=== PATIENT | female | born 1980 | race Caucasian/White ===

== ENCOUNTER 2018-02-16 10:16 | Outpatient (REF) | payer OTHER, SELFPAY ==
[2018-02-16 13:11] LABS: Anion Gap 8.5 mmol/L (3-11); BUN 10 mg/dL (7-18); CO2 27.5 mmol/L (21.0-32.0); CREATININE 0.73 mg/dL (0.55-1.02); Calcium 9.3 mg/dL (8.5-10.1); Chloride 106 mmol/L (98-107); Glucose 90 mg/dL (70-100); Sodium 142 mmol/L (136-145)
== END 2018-02-16 10:36 ==
LOC: NCHCN 10:16
PROVIDERS: PCP Family Medicine; Visit Provider Family Medicine
DX: I10 Essential (primary) hypertension (principal)
CPT/HCPCS: 80048

== ENCOUNTER 2019-03-01 16:59 | Outpatient (REF) | payer OTHER, SELFPAY ==
[2019-03-01 20:02] LABS: Hemoglobin A1C 5.6 % (3.8-5.6)
[2019-03-01 20:12] LABS: CREATININE 0.68 mg/dL (0.55-1.02); Calculated LDL 84 mg/dL; Cholesterol 154 mg/dL (<200); HDL Cholesterol 50 mg/dL (40-60); Triglyceride 103 mg/dL (<150)
== END 2019-03-01 17:19 ==
LOC: NCHCN 16:59
PROVIDERS: PCP Family Medicine; Visit Provider Family Medicine
DX: Z13.1 Encounter for screening for diabetes mellitus (principal); I10 Essential (primary) hypertension; Z00.00 Encounter for general adult medical examination without abnormal findings; Z13.220 Encounter for screening for lipoid disorders
CPT/HCPCS: 80061; 82565; 83036

== ENCOUNTER 2020-03-02 17:09 | Outpatient (REF) | payer OTHER, SELFPAY ==
--- NOTE | 2020-03-02 16:45 | PAPFT_PTH ---
PATIENT: Marilyn Miller LOC: [facility] #:[id number] AGE/SX: 40/F ROOM: RE03/02/[address]: Que Palafox : 1980 BED: DIS: 03/02/2020 SPEC #: [id number] RECD: 03/02/20 17:51 STATUS: NILAY REQ #: [id number] SARANYA: 03/02/20 16:[address]: Que Palafox DEPT: [facility] Cytology RECD BY: Reshma Gregorio Tissues: 1 - CX/ENDOCX FOR PAP SMEARS Procedures: PAP THIN PREP/UVM Screening HPV DNA PROBE Comments: [id number]
== END 2020-03-02 17:29 ==
LOC: NCHCN 17:09
PROVIDERS: PCP Family Medicine; Visit Provider Family Medicine
DX: R87.610 Atypical squamous cells of undetermined significance on cytologic smear of cervix (ASC-US) (principal); Z11.51 Encounter for screening for human papillomavirus (HPV); Z00.00 Encounter for general adult medical examination without abnormal findings
CPT/HCPCS: 88142; 87624

== ENCOUNTER 2021-04-26 18:24 | Outpatient (REF) | payer OTHER, SELFPAY ==
[2021-04-26 19:54] LABS: CREATININE 0.9 mg/dL (0.55-1.02)
[2021-04-28 08:58] LABS: Hepatitis C Ab w Rflx HCV PCR Negative (Negative)
== END 2021-04-26 18:25 | disposition home or self-care (01) ==
LOC: NCHCN 18:24
PROVIDERS: PCP Family Medicine; Visit Provider Family Medicine
DX: Z00.00 Encounter for general adult medical examination without abnormal findings (principal); I10 Essential (primary) hypertension; Z11.59 Encounter for screening for other viral diseases
CPT/HCPCS: 86803; 82565

== ENCOUNTER 2022-03-28 18:02 | Outpatient (REF) | payer OTHER, SELFPAY ==
[2022-03-28 18:27] LABS: CREATININE 0.7 mg/dL (0.55-1.02); Estimated GFR 112.05 (mL/min/1.73m2)
[2022-03-28 18:32] LABS: Hemoglobin A1C 5.3 % (<5.7)
== END 2022-03-28 18:03 | disposition home or self-care (01) ==
LOC: NCHCN 18:02
PROVIDERS: PCP Family Medicine; Visit Provider Family Medicine
DX: Z00.00 Encounter for general adult medical examination without abnormal findings (principal); Z13.1 Encounter for screening for diabetes mellitus; I10 Essential (primary) hypertension
CPT/HCPCS: 82565; 83036

== ENCOUNTER 2023-04-04 18:33 | Outpatient (REF) | payer BC, SELFPAY ==
--- NOTE | 2023-04-04 16:00 | PAPFT_PTH ---
PATIENT: Marilyn Miller LOC: [facility]#:[id number] AGE/SX: 43/F ROOM: RE04/04/[address]: Que Palafox : 1980 BED: DIS: 04/04/2023 SPEC #: [id number] RECD: 04/04/23 18:40 STATUS: NILAY REQ #: [id number] SARANYA: 04/04/23 16:[address]: Que Palafox DEPT: [facility] Cytology RECD BY: Reshma Gregorio Tissues: 1 - CX/ENDOCX FOR PAP SMEARS Procedures: PAP THIN PREP/UVM Screening HPV DNA PROBE Comments: [id number]
== END 2023-04-04 18:34 | disposition home or self-care (01) ==
LOC: NCHCN 18:33
PROVIDERS: PCP Family Medicine; Visit Provider Family Medicine
DX: Z12.4 Encounter for screening for malignant neoplasm of cervix (principal); Z11.51 Encounter for screening for human papillomavirus (HPV); R87.613 High grade squamous intraepithelial lesion on cytologic smear of cervix (HGSIL)
CPT/HCPCS: 88142; 87624

== ENCOUNTER → 2023-04-25 03:50 | Outpatient (CLI) | payer BC, SELFPAY ==
--- NOTE | 2023-04-25 | DI.MAMMO_ITS ---
Exam(s) MAMMO SCREENING EXAM: MAMMO SCREENING CLINICAL HISTORY: SCREENING, Z12.31. TECHNIQUE: Bilateral full field digital CC and MLO mammographic images were obtained with 3D tomosyn thesis and utilizing computer aided detection (CAD). COMPARISON: None. This is a baseline mammogram on a 43-year-old. FINDINGS: There has been no significant change in the appearance and distribution of the fibroglandular tissue. There are no obvious spiculated masses nor malignant appearing microcalcification groups. There is no significant architectural distortion nor skin thickening-retraction. IMPRESSION: No radiographic evidence of malignancy. BI-RADS Category 1 - Negative Breast Density - Category C - Heterogeneously dense Breast density Category C or D implies that the patient has dense breast tissue. Dense breast tissue can make it harder to find cancer on a mammogram. Dense breast tissue is also associated with an incr eased risk of breast cancer. This information about the result of the mammogram report was provided to the patient to raise their awareness. Use this report when you speak with the patient about their risks for breast cancer, which includes their family history. At that time, you may recommend additional screening tests (Ultrasoun d or MRI) as these tests may add significant information. A negative radiographic report should not delay biopsy if a dominant or clinically suspicious mass is present. Up to ten percent of cancers are not identified on mammography. A negative report may reinforce clinical impression. Adenosis and dense breasts may obscure an underlying neoplasm. False positive reports average 6 to 10%. Patient will receive a letter notifying them of these results.
== END ==
PROVIDERS: PCP Family Medicine; Visit Provider Family Medicine
DX: Z12.31 Encounter for screening mammogram for malignant neoplasm of breast (principal)
CPT/HCPCS: 77063; 77067

== ENCOUNTER 2023-04-25 15:23 | Outpatient (REF) | payer BC, SELFPAY ==
[2023-04-25 15:52] LABS: Anion Gap 12.3 mmol/L (3-11); BUN 11 mg/dL (7-18); CO2 26.7 mmol/L (21.0-32.0); CREATININE 0.8 mg/dL (0.55-1.02); Calcium 9.3 mg/dL (8.5-10.1); Calculated LDL 97 mg/dL (<100); Chloride 106 mmol/L (98-107); Cholesterol 165 mg/dL (<200); Estimated GFR 94.87 (mL/min/1.73m2); Glucose 86 mg/dL (74-106); HDL Cholesterol 50 mg/dL (40-60); Potassium 3.6 mmol/L (3.5-5.1); Sodium 145 mmol/L (136-145); Triglyceride 94 mg/dL (<150)
== END 2023-04-25 15:24 | disposition home or self-care (01) ==
LOC: NCHCN 15:23
PROVIDERS: PCP Family Medicine; Visit Provider Family Medicine
DX: Z00.00 Encounter for general adult medical examination without abnormal findings (principal); I10 Essential (primary) hypertension; Z13.220 Encounter for screening for lipoid disorders
CPT/HCPCS: 80048; 80061

== ENCOUNTER 2024-04-16 12:01 | Outpatient (REF) | payer BC, SELFPAY ==
--- NOTE | 2024-04-16 09:15 | PAPFT_PTH ---
PATIENT: Marilyn Miller LOC: [facility]#:[id number] AGE/SX: 44/F ROOM: RE04/16/[address]: Greg Pastor : 1980 BED: DIS: 04/16/2024 SPEC #: [id number] RECD: 04/16/24 17:45 STATUS: NILAY REQ #: [id number] SARANYA: 04/16/24 09:[address]: Greg Pastor DEPT: [facility] Cytology RECD BY: Reshma Gregorio Tissues: 1 - CX/ENDOCX FOR PAP SMEARS Procedures: PAP THIN PREP/UVM Screening HPV DNA PROBE Comments: [id number] (HPV 16 & 18/45)
== END 2024-04-16 12:02 | disposition home or self-care (01) ==
LOC: NCHCN 12:01
PROVIDERS: PCP Physician Assistant; Visit Provider Physician Assistant
DX: Z11.51 Encounter for screening for human papillomavirus (HPV) (principal); Z01.419 Encounter for gynecological examination (general) (routine) without abnormal findings; R87.612 Low grade squamous intraepithelial lesion on cytologic smear of cervix (LGSIL)
CPT/HCPCS: 88142; 87624

== ENCOUNTER → 2024-12-30 02:05 | Outpatient (CLI) | payer OTHER, SELFPAY ==
--- NOTE | 2024-12-30 08:06 | DI.MAMMO_ITS ---
Exam(s) MAMMO SCREENING EXAM: MAMMO SCREENING CLINICAL HISTORY: Z12.31 Screening TECHNIQUE: Bilateral full field digital CC and MLO mammographic images were obtained with 3D tomosynthesis and utilizing computer aided detection (CAD). COMPARISON: Comparison is made with prior examinations. FINDINGS: Masses/Architectural Distortion: There is a new well-circumscribed nodule measuring 7 mm in the medial central right breast 7 cm from the nipple. There are no areas of architectural distortion. Microcalcifications: No suspicious pleomorphic-type are seen. Skin Thickening/Nipple Retraction: None. IMPRESSION: 1. New 7 mm right breast nodule. 2. Further evaluation with spot compression views requested. Ultrasound should be obtained at that time. BI-RADS Category 0 - Incomplete: Need additional imaging evaluation Breast Density - Category C - The breast are heterogeneously dense, which may obscure small masses. Breast density Category C or D implies that the patient has dense breast tissue. Dense breast tissue can make it harder to find cancer on a mammogram. Dense breast tissue is also associated with an increased risk of breast cancer. This information about the result of the mammogram report was provided to the patient to raise their awareness. Use this report when you speak with the patient about their risks for breast cancer, which includes their family history. At that time, you may recommend additional screening tests (Ultrasound or MRI) as these tests may add significant information. A negative radiographic report should not delay biopsy if a dominant or clinically suspicious mass is present. Up to ten percent of cancers are not identified on mammography. A negative report may reinforce clinical impression. Adenosis and dense breasts may obscure an underlying neoplasm. False positive reports average 6 to 10%. Patient will receive a letter notifying them of these results.
== END ==
PROVIDERS: PCP Physician Assistant; Visit Provider Physician Assistant
DX: Z12.31 Encounter for screening mammogram for malignant neoplasm of breast (principal); R92.8 Other abnormal and inconclusive findings on diagnostic imaging of breast
CPT/HCPCS: 77063; 77067

== ENCOUNTER → 2025-01-01 01:24 | Outpatient (CLI) | payer OTHER, SELFPAY ==
--- NOTE | 2025-01-01 | DI.US_ITS ---
Exam(s) MG MAMMO SCREEN CALL BACK UNI US BREAST RT LIMITED EXAM: MG MAMMO SCREEN CALL BACK UNI and U/S breast RT limited CLINICAL HISTORY: F/U ABNL MAMMO, NEW 7 MM RT BREAST NODULE. TECHNIQUE: Craniocaudal and mediolateral oblique spot digital Mammography views of the left breast with Computer Aided Diagnosis followed by Tomosynthesis and limited left breast ultrasound. COMPARISON: Comparison is made with prior examinations. FINDINGS: Mammography/Tomosynthesis: Masses/Architectural Distortion: The area of concern does not persist on the additional views. There are no suspicious masses or areas of architectural distortion present. Microcalcifictions: No suspicious pleomorphic-type are seen. Skin Thickening/Nipple Retraction: None. Limited left breast US: Echotexture: Normal appearance of the glandular tissue. Shadowing: No suspicious foci. Cyst: None. Solid lesions: None seen. Ductal dilation: None. IMPRESSION: 1. No evidence of malignancy is noted. 2. Unless there is more urgent need, follow-up screening mammography is recommended, as per [place] [employer] guidelines. 3. The findings were discussed with the patient on the date of the examination. BI-RADS Category 1 - Negative Breast Density - Category C - The breast are heterogeneously dense, which may obscure small masses. Breast density Category C or D implies that the patient has dense breast tissue. Dense breast tissue can make it harder to find cancer on a mammogram. Dense breast tissue is also associated with an increased risk of breast cancer. This information about the result of the mammogram report was provided to the patient to raise their awareness. Use this report when you speak with the patient about their risks for breast cancer, which includes their family history. At that time, you may recommend additional screening tests (Ultrasound or MRI) as these tests may add significant information. A negative radiographic report should not delay biopsy if a dominant or clinically suspicious mass is present. Up to ten percent of cancers are not identified on mammography. A negative report may reinforce clinical impression. Adenosis and dense breasts may obscure an underlying neoplasm. False positive reports average 6 to 10%. Patient will receive a letter notifying them of these results.
== END ==
LOC: DI 01:30
PROVIDERS: PCP Physician Assistant; Visit Provider Physician Assistant
DX: Z12.31 Encounter for screening mammogram for malignant neoplasm of breast (principal); R92.2 Inconclusive mammogram
CPT/HCPCS: 76642; 77063; 77067